=== PATIENT | female | born 1955 | race Hispanic/Latino ===

== ENCOUNTER → 2022-04-17 | Outpatient (CLI) | payer MEDICARE, OTHER ==
[~2022-04-17] MED LIST: ASPI1TAB7 PO; ERGO500014 PO; LEVO50TA4 PO; LISI5TAB21 PO; METO10TA3 PO; OMEP40CA21 PO; PROM25 PO; TRAZ-185 PO
== END | disposition home or self-care (01) ==
LOC: RAH 10:53
PROVIDERS: ATTEND Internal Medicine Gastroenterology
DX: R14.0 Abdominal distension (gaseous) (principal); R11.2 Nausea with vomiting, unspecified
CPT/HCPCS: 78264; A9541